=== PATIENT | male | born 2000 | race Hispanic/Latino ===

== ENCOUNTER 2024-10-15 13:26 | Emergency (ER) | payer OTHER ==
[~2024-10-15] VITALS: Ht 172.7 cm; Wt 95.3 kg
[2024-10-15 13:35] VITALS: TEMP 97.5
[2024-10-15 14:55] VITALS: PULSE 58; RESP 14; O2SAT 100
== END 2024-10-15 15:25 | disposition home or self-care (01) ==
LOC: ER 13:41
DX: M79.652 Pain in left thigh (principal); V03.10XA Pedestrian on foot injured in collision with car, pick-up truck or van in traffic accident, initial encounter; Y93.01 Activity, walking, marching and hiking; Y92.481 Parking lot as the place of occurrence of the external cause
CPT/HCPCS: 99283